=== PATIENT | male | born 1950 | race Caucasian/White ===

== ENCOUNTER 2019-09-19 21:04 | Inpatient (IN) ==
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
[2019-09-19] MEDS ORDERED: KEPPRA 1,000 MG in NS 100 ML IV ONE (21:48)
[2019-09-19 22:02] LABS: BASO# 0.04 X1000 (0.0-0.2); BASO% 0.2 % (0.0-0.8); EOS# 0.08 X1000 (0.0-0.7); EOS% 0.4 % (0.0-10.0); HEMATOCRIT 40.5 % (42.0-52.0); HEMOGLOBIN 13.4 g/dL (14.0-18.0); IMM GRAN# 0.25 X1000 (0.0-0.04); IMM GRAN% 1.2 % (0.0-0.5); LYMPH# 1.32 X1000 (1.2-3.4); LYMPH% 6.6 % (20.5-51.1); MCHC 33.1 g/dL (33-37); MCV 84.7 FL (81-99); MONO# 0.93 X1000 (0.11-0.59); MONO% 4.6 % (1.7-9.3); MPV 10.6 FL (7.4-10.4); PLT 279 X1000 (130-400); RBC 4.78 XMIL (4.7-6.1); RDW 13.2 % (11.5-14.5); WBC 20.02 X1000 (4.8-10.8)
[2019-09-19 22:04] LABS: INR 1.14; PROTIME 14.8 Seconds (11.0-16.0)
--- NOTE | 2019-09-19 22:04 | Diag Imaging Result Doc PS360 ---
CHEST-PORTABLE - 09/19/2019 INDICATION: Altered Mental Status COMPARISON: None FINDINGS: There are interstitial opacities in the lung bases bilaterally that appear peripheral. These may reflect fibrosis. No dense consolidations. No pneumothorax or pleural effusion. Heart size is normal. IMPRESSION: Bibasilar interstitial opacities most consistent with pulmonary fibrosis. Electronically signed by Ace Robles 09/19/2019 10:02 PM
[2019-09-19 22:05] LABS: PTT 26.7 Seconds (22.3-41.8)
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
[2019-09-19 22:16] LABS: ALLEN TEST YES; BE -2.9 mmoll (-3.0-3.0); BLOOD TYPE ARTERIAL; HCO3-(ACT) 22.5 mmoll (20.0-26.0); METHB 0.5 % (0.0-1.5); MODALITY ROOM AIR; O2(CT) 17.5 mL/dL (15.0-23.0); O2HB 92.4 % (95.0-99.0); PCO2(98.6) 38 mmHg (35-45); PO2(98.6) 66 mmHg (60-100); SAMPLE BLOOD; SAO2 94.1 % (95.0-100.0); THB 13.5 g/dL (11.5-17.4); pH(98.6) 7.37 (7.35-7.45)
[2019-09-19 22:23] LABS: ALB/GLOB RATIO 1.2; CALCIUM 8.5 mg/dL (8.8-10.2); CREATININE 1.9 mg/dL (0.7-1.2); POTASSIUM 4.8 mmol/L (3.5-5.1); TOTAL BILIRUBIN 0.29 mg/dL (0.20-1.00); TOTAL PROTEIN 5.6 g/dL (6.3-8.3)
[2019-09-19] MEDS ORDERED: APRESOLINE IV ONE (23:14)
[2019-09-19 23:34] LABS: UR AMPHETAMINES QUAL NONE DETECTED (NONE DETECT); UR BARBITUATES QUAL NONE DETECTED (NONE DETECT); UR BENZODIAZEPIN QUAL NONE DETECTED (NONE DETECT); UR CANNABINOIDS QUAL NONE DETECTED (NONE DETECT); UR COCAINE QUAL NONE DETECTED (NONE DETECT); UR METHADONE QUAL NONE DETECTED (NONE DETECT); UR OPIATES QUAL NONE DETECTED (NONE DETECT); UR OXYCODONE QUAL NONE DETECTED (NONE DETECT); UR PCP QUAL NONE DETECTED (NONE DETECT)
[2019-09-20 00:35] LABS: URINE SOURCE CLEAN CATCH
[2019-09-20 00:40] LABS: BILIRUBIN URINE NEGATIVE (NEGATIVE); BLOOD URINE SMALL (NEGATIVE); COLOR YELLOW; GLUCOSE URINE 1000 mg/dL (NEGATIVE); KETONE URINE 10 mg/dL (NEGATIVE); LEUKOCYTES URINE NEGATIVE (NEGATIVE); NITRITE URINE NEGATIVE (NEGATIVE); PH URINE 6.5; PROTEIN URINE >600 mg/dL (NEGATIVE); SP GRAVITY URINE 1.029; TURBIDITY URINE CLEAR (CLEAR); UR EPITHELIAL CELLS <10 /HPF (<10); URINE BACTERIA NEGATIVE /HPF; URINE RBC 20-40 /HPF (<10); UROBILINOGEN URINE 2 mg/dL (NORMAL)
--- NOTE | 2019-09-20 00:51 | EKG Report ---
Test Performed on : 09/20/2019 00:34:37 AM Test Reason : CP Blood Pressure : / mmHG Vent. Rate : 064 BPM Atrial Rate : 064 BPM P-R Int : 136 ms QRS Dur : 094 ms QT Int : 458 ms P-R-T Axes : 060 -19 116 degrees QTc Int : 472 ms Normal sinus rhythm. Nonspecific ST and T wave abnormality Prolonged QT Abnormal ECG When compared with ECG of 19-SEP-2019 22:27, (Unconfirmed) No significant change was found Unconfirmed Result
--- NOTE | 2019-09-20 00:52 | EKG Report ---
Test Performed on : 09/19/2019 10:27:32 PM Test Reason : Altered Mental Status Blood Pressure : / mmHG Vent. Rate : 064 BPM Atrial Rate : 064 BPM P-R Int : 136 ms QRS Dur : 090 ms QT Int : 460 ms P-R-T Axes : 058 -30 116 degrees QTc Int : 474 ms Normal sinus rhythm. Left axis deviation ST & T wave abnormality, consider lateral ischemia Prolonged QT Abnormal ECG No previous ECGs available Unconfirmed Result
[2019-09-20 01:04] LABS: MAGNESIUM 1.9 mg/dL (1.5-2.7)
[2019-09-20] MEDS: APRESOLINE IV PRN ×3 (01:52→16:39)
[2019-09-20] MEDS ORDERED: HUMULIN R SUBQ ONE (02:55)
[2019-09-20] MEDS ORDERED: ZOFRAN ODT PO PRN (02:55)
[2019-09-20] MEDS ORDERED: TYLENOL PO PRN (02:55)
[2019-09-20] MEDS: ROCEPHIN 1 GM in NS 50 ML IV SCH (03:42)
[2019-09-20] MEDS: NS 1,000 ML IV SCH ×2 (03:42→12:24)
[2019-09-20 04:39] LABS: ACETAMINOPHEN < 1.2 ug/mL (10-30); SALICYLATES < 3.00 mg/dL (3-10)
[2019-09-20 04:53] LABS: UR CREAT RANDOM 105.8 mg/dL (14-26); UR PROT RANDOM 230.5 mg/dL
[2019-09-20 05:55] LABS: BASO# 0.06 X1000 (0.0-0.2); BASO% 0.4 % (0.0-0.8); EOS# 0.15 X1000 (0.0-0.7); EOS% 0.9 % (0.0-10.0); HEMATOCRIT 38.1 % (42.0-52.0); HEMOGLOBIN 12.6 g/dL (14.0-18.0); IMM GRAN# 0.11 X1000 (0.0-0.04); IMM GRAN% 0.7 % (0.0-0.5); LYMPH# 2.03 X1000 (1.2-3.4); LYMPH% 12.7 % (20.5-51.1); MCH 28.3 PG (27-31); MCHC 33.1 g/dL (33-37); MCV 85.4 FL (81-99); MONO# 1.21 X1000 (0.11-0.59); MONO% 7.6 % (1.7-9.3); MPV 10.5 FL (7.4-10.4); NEUT# 12.43 X1000 (1.4-6.5); NEUT% 77.7 % (42.2-75.2); PLT 270 X1000 (130-400); RBC 4.46 XMIL (4.7-6.1); RDW 13.3 % (11.5-14.5); WBC 15.99 X1000 (4.8-10.8)
[2019-09-20 05:56] LABS: HEMOGLOBIN A1C 8.8 % (4.8-6.0)
[2019-09-20 06:09] LABS: ALBUMIN 2.7 g/dL (3.5-5.0); CALCIUM 8.4 mg/dL (8.8-10.2); CREATININE 1.9 mg/dL (0.7-1.2); PHOSPHORUS 3.4 mg/dL (2.7-4.5); POTASSIUM 4.1 mmol/L (3.5-5.1)
[2019-09-20] MEDS: HUMULIN R SUBQ SCH ×4 (06:11→21:59)
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
[2019-09-20] MEDS: KEPPRA PO SCH ×2 (08:18→21:59)
--- NOTE | 2019-09-20 09:25 | Diag Imaging Result Doc PS360 ---
EXAM: MRI BRAIN W/O CONTRAST HISTORY: Poss. Seizure/R/O Seizure TECHNIQUE: MRI brain without contrast. Axial, sagittal, and coronal images obtained in multiple sequences. COMPARISON: CT from 09/19/2019 FINDINGS: No recent infarct. There are prominent microvascular ischemic changes. No mass or midline shift. No hydrocephalus. No epidural or subdural fluid collection. Normal orbits. No sinus opacification. IMPRESSION: Prominent microvascular ischemic changes, but no recent infarct. Electronically signed by David Martinez 09/20/2019 9:23 AM
[2019-09-20] MEDS: LANTUS INSULIN SUBQ SCH (11:26)
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
[2019-09-20] MEDS: APRESOLINE PO SCH ×2 (12:25→21:59)
[2019-09-20] MEDS ORDERED: ATIVAN IV ONE (16:28)
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
[2019-09-20] MEDS: COREG PO SCH (21:59)
[2019-09-20] MEDS: NORVASC PO SCH (21:59)
[2019-09-21] MEDS: ROCEPHIN 1 GM in NS 50 ML IV SCH ×3 (04:08→05:18)
[2019-09-21] MEDS ORDERED: XYLOCAINE-MPF 1% INJ ONE (04:18)
[2019-09-21] MEDS ORDERED: ROCEPHIN IM ONE (04:18)
[2019-09-21] MEDS: APRESOLINE PO SCH ×3 (04:33→20:32)
[2019-09-21] MEDS ORDERED: D50W SYRINGE IV ONE (06:40)
[2019-09-21] MEDS: HUMULIN R SUBQ SCH ×4 (06:42→20:32)
[2019-09-21] MEDS: COREG PO SCH ×2 (09:26→20:31)
[2019-09-21] MEDS: LANTUS INSULIN SUBQ SCH (09:26)
[2019-09-21] MEDS: KEPPRA PO SCH ×2 (09:26→20:31)
[2019-09-21] MEDS: NORVASC PO SCH ×2 (09:26→20:31)
[2019-09-21 09:32] LABS: BASO# 0.07 X1000 (0.0-0.2); BASO% 0.5 % (0.0-0.8); EOS# 0.42 X1000 (0.0-0.7); EOS% 2.8 % (0.0-10.0); HEMATOCRIT 39.4 % (42.0-52.0); HEMOGLOBIN 12.5 g/dL (14.0-18.0); IMM GRAN# 0.07 X1000 (0.0-0.04); IMM GRAN% 0.5 % (0.0-0.5); LYMPH# 1.63 X1000 (1.2-3.4); LYMPH% 10.8 % (20.5-51.1); MCH 27.8 PG (27-31); MCHC 31.7 g/dL (33-37); MCV 87.6 FL (81-99); MONO# 1.04 X1000 (0.11-0.59); MONO% 6.9 % (1.7-9.3); MPV 10.7 FL (7.4-10.4); NEUT# 11.88 X1000 (1.4-6.5); NEUT% 78.5 % (42.2-75.2); PLT 300 X1000 (130-400); WBC 15.11 X1000 (4.8-10.8)
[2019-09-21 09:53] LABS: ALBUMIN 2.8 g/dL (3.5-5.0); CALCIUM 8.5 mg/dL (8.8-10.2); POTASSIUM 4.5 mmol/L (3.5-5.1); TOTAL BILIRUBIN 0.32 mg/dL (0.20-1.00); TOTAL PROTEIN 5.6 g/dL (6.3-8.3)
--- NOTE | 2019-09-21 11:36 | PROGRESS NOTE ---
DATE: 09/21/2019 SUBJECTIVE: I have seen and examined Mr. Horton today. He was for the most part sleeping, but he said he was doing well. Per the nursing staff, he was quite agitated, confused. Early this morning, he ripped his IV access, took off the hospital gown. They were able to calm him down over the course of the night. This morning, he has just been sleeping. OBJECTIVE: Vital signs: Blood pressure is 168/56, pulse of 79, respiration is 12, temperature is 98.2 degrees. General exam: Mr. Horton is a 68-year-old gentleman. He is in bed, does not seem to be in any distress. HEENT: Mucosa is pink and moist. Anicteric. Acyanotic. Neck: Supple. Chest: Good air entry bilaterally. There was no crepitations, no rhonchi. Cardiovascular: Regular rate and rhythm. GI/Abdomen: Soft, nontender. Bowel sounds present. Extremities: No pedal edema. Some chronic changes on the right lateral leg. CANDY DIPPER: Patient is sleepy, but is easily arousable and follows commands. LABORATORY DATA: None for today. Patient's glucose went to 64 early this morning. ASSESSMENT: 1. Altered mental status with prolonged postictal state associated with narrated jerking movements concerning for possible seizures. Patient's magnetic resonance imaging and electroencephalogram were unremarkable. Neurology has evaluated him. Has not had any seizures during the hospital course. 2. Delirium. I understand that the patient was extremely confused and agitated last night. She is just sleeping this morning. We will re-evaluate her a little later today. 3. Uncontrolled hypertension on admission, improved. 4. Diabetes mellitus. Presenting A1c of 8.8. We will continue with insulin regimen. The patient's glucose went down last night. I understand he refused to take anything by mouth, so he had to be given D 50. 5. Chronic kidney disease stage IIIB noted. 6. Leukocytosis, presumably reactive. However an underlying infection etiology cannot be completely excluded. Cultures are still pending. PLAN: So, in general, I think Mr. Horton is doing well. He has not had any more jerking movements here in the hospital. He was quite delirious overnight. We are going to get a catheter out, transfer him from the critical care unit to the medical floor to see how he is over the course of the day, and decide if he can be discharged later on today. cc: Santy Penny MD
[2019-09-21] MEDS: PLAVIX PO SCH (17:40)
--- NOTE | 2019-09-21 18:46 | ECHO REPORT ---
ORDER DATE: 09/20/2019 INDICATION: Possible cardiac syncope. M-MODE MEASUREMENTS: Left ventricle end diastole: 4.8. Left ventricle end systole: 2.7. Posterior wall: 1.3. Interventricular septum: 1.3. Left atrium: 4.4. Aortic diameter: 2.8. SUMMARY OF 2-DIMENSIONAL IMAGIN. Left ventricular function is normal. Ejection fraction is 69%. There are no wall motion abnormalities noted. Mild degree of concentric LVH. 2. The right ventricle is normal. 3. The aortic valve looks normal. Color flow mapping unremarkable. 4. The mitral annulus shows some calcification. Color flow mapping unremarkable. 5. Pulse wave Doppler of mitral inflow shows reversal of the E/A ratio. The ratio is 0.7. 6. There is impaired left ventricular relaxation. 7. Tissue Doppler of septal and lateral mitral annulus averages 5.5 cm. 8. The pulmonic valve is normal. Color flow mapping unremarkable. 9. The tricuspid valve appears to be grossly within normal range. 10.There is no pericardial effusion, no mass, and no thrombus. The study was difficult. Clinical correlation recommended. cc: Nik Del Cid MD
[2019-09-21] MEDS: APRESOLINE IV PRN (20:32)
[2019-09-22] MEDS: ROCEPHIN 1 GM in NS 50 ML IV SCH (05:58)
[2019-09-22] MEDS: APRESOLINE PO SCH (05:58)
[2019-09-22] MEDS: HUMULIN R SUBQ SCH (06:29)
[2019-09-22 07:45] LABS: HEMATOCRIT 36.1 % (42.0-52.0); HEMOGLOBIN 11.8 g/dL (14.0-18.0); MCH 28.7 PG (27-31); MCHC 32.7 g/dL (33-37); MCV 87.8 FL (81-99); MPV 10.7 FL (7.4-10.4); RBC 4.11 XMIL (4.7-6.1); WBC 13.15 X1000 (4.8-10.8)
[2019-09-22 08:28] LABS: ALB/GLOB RATIO 0.9; ALBUMIN 2.6 g/dL (3.5-5.0); CALCIUM 8.3 mg/dL (8.8-10.2); CREATININE 1.9 mg/dL (0.7-1.2); POTASSIUM 4.4 mmol/L (3.5-5.1); TOTAL BILIRUBIN 0.19 mg/dL (0.20-1.00); TOTAL PROTEIN 5.4 g/dL (6.3-8.3)
[2019-09-22] MEDS: COREG PO SCH (09:15)
[2019-09-22] MEDS: KEPPRA PO SCH (09:15)
[2019-09-22] MEDS: PLAVIX PO SCH (09:15)
[2019-09-22] MEDS: NORVASC PO SCH (09:15)
[2019-09-22] MEDS: LANTUS INSULIN SUBQ SCH (09:16)
[2019-09-22 09:24] VITALS: BP 189/50
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
--- NOTE | 2019-09-23 19:09 | Carotid Study ---
DATE: 09/20/2019 SIGNAL WIRER: Eder. REQUESTING PROVIDER: Omid. INDICATION: Encephalopathy and possible seizures. FINDINGS: Bilateral carotid artery systems visualized along their course. In the right there is diffuse atherosclerotic changes noted throughout the common carotid artery extending and developing more focal plaque in the bulb, however this does not cause significant hemodynamic change and will correlate to a 0 to 39% stenosis. In the left there is more broad-base plaque in the bulb extending proximal internal carotid artery that causes turbulence of flow and significant elevation in velocities that correlate to an 80 to 99 percent stenosis, the vertebrals are antegrade bilaterally. IMPRESSION: Mild degree of atherosclerotic changes noted on the right with critical stenosis noted on the left. Would recommend surgical evaluation. cc: Wang Tai MD
== END 2019-09-22 12:12 | disposition home or self-care (01) | DRG 71 ==
LOC: ED 21:04 → EDIPHOLD 09-20 01:50 → SUATTDRO 09-20 01:50 → 2N 09-20 05:22 → 3N 09-21 16:19
PROVIDERS: ATTEND Internal Medicine